=== PATIENT | male | born 1975 ===

== ENCOUNTER 2021-10-19 17:58 | Observation (INO) | payer OTHER ==
[2021-10-19] MEDS ORDERED: SODIUM CHLORIDE 0.9% 1,000 ML IV STA (18:23)
--- NOTE | 2021-10-19 18:27 | ED ---
General Adult HPI - General Chief complaint: Psychiatric Symptoms Stated complaint: Suicidal, overdose Time Seen by Provider: 10/19/21 18:18 Source: patient Mode of arrival: ambulatory - History of Present Illness Initial comments: Patient pesents to the ED for evaluation status post suicidal overdose attempt. Patient states that he took a full bottle of his Seroquel 400 mg, containing 14 pills, as well as a full bottle of his Wellbutrin XL 300 mg, containing 14 pills all at once about 3 hours ago in a suicidal attempt. Patient states that he was discharged from the psychiatric unit earlier today, and he states that he did not feel that he was ready to be discharged. Patient states that he currently has chest pain and feels "crappy". Patient also admits to feeling weak and dizzy, as well as feeling somewhat dyspneic. Patient denies any other suicidal attempt or any other medication abuse/overdose. Patient denies alcohol use or illicit drug use. Patient denies trauma or injury, fever or chills, headache, focal numbness/weakness/neuro deficit, dyspnea, cough or cold symptoms, palpitations, syncope, abdominal pain, nausea/vomiting/diarrhea, dysuria or urinary symptoms, leg or calf swelling or pain, hallucinations, homicidal ideations, or any other symptoms or complaints. - Related Data Home Medications Medication Instructions Recorded Confirmed Buprenorphine HCl/Naloxone HCl 1 film SL DAILY 10/09/21 10/19/21 [Suboxone 8 mg-2 mg Sl Film] rOPINIRole HCL [Requip] 2 mg PO HS 10/19/21 10/19/21 Previous Rx's Medication Instructions Recorded Hydrocortisone Cream 1 applic TOPICAL BID PRN each 10/19/21 [Hydrocortisone 1% Cream] Melatonin 3 mg PO HS 14 Days tab 10/19/21 Nicotine Gum (Polacrilex) 2 mg BUCCAL Q4HR PRN 28 Days 10/19/21 [Nicorette] pieceofgum QUEtiapine [SEROquel] 400 mg PO HS 14 Days tab 10/19/21 Sertraline [Zoloft] 150 mg PO HS 14 Days tab 10/19/21 buPROPion XL [Wellbutrin XL] 300 mg PO DAILY 14 Days tab 10/19/21 Allergies Allergy/AdvReac Type Severity Reaction Status Date / Time codeine Allergy Unknown Verified 10/19/21 18:10 haloperidol [From Haldol] Allergy Unknown Verified 10/19/21 18:10 Review of Systems ROS Statement: Those systems with pertinent positive or pertinent negative responses have been documented in the HPI. ROS Other: All systems not noted in ROS Statement are negative. Past Medical History Past Medical History: No Reported History Past Surgical History: No Surgical Hx Reported Past Psychological History: Anxiety, Bipolar, Depression Smoking Status: Current every day smoker - Past Family History Mother Family Medical History: Hypertension General Exam Limitations: no limitations General appearance: alert, in no apparent distress Head exam: Present: atraumatic, normocephalic Eye exam: Present: normal appearance, PERRL, EOMI ENT exam: Present: mucous membranes moist Neck exam: Present: other (Trachea is in midline) Respiratory exam: Present: normal lung sounds bilaterally. Absent: respiratory distress, wheezes, rales, rhonchi, stridor Cardiovascular Exam: Present: tachycardia, irregular rhythm, normal heart sounds, other (Normal radial pulses bilaterally) GI/Abdominal exam: Present: soft. Absent: distended, tenderness, guarding Extremities exam: Present: other (Negative Homans sign bilaterally). Absent: tenderness, pedal edema, calf tenderness Neurological exam: Present: alert, oriented X3, CN II-XII intact. Absent: motor sensory deficit Psychiatric exam: Present: flat affect Skin exam: Present: warm, dry, intact, normal color Course Vital Signs 10/19/21 10/19/21 18:04 19:27 Temperature 98.1 F Pulse Rate 180 H 125 H Respiratory 20 20 Rate Blood Pressure 58/40 153/100 O2 Sat by Pulse 96 95 Oximetry - Reevaluation(s) Reevaluation #1: 10/19/21 18:39 Case, H&P, EKG findings and pending ED workup were discussed with [place] [facility] control center nurse Aleksandra. She recommends treatment with IV fluids, benzos for agitation and seizure precautions given the patient's reported overdoses. She also recommends electrolyte corrections as needed. She recommends hospital admission for 24 hour observation. She has no further recommendations at this time. 10/19/21 19:39 Case, H&P, test results thus far, ED management thus far, and my discussion with [place] [facility] control [facility] as above were discussed with Dr. Mancera. She accepts hospital admission. She has no further recommendations at this time. 10/19/21 19:49 Patient remains in sinus tachycardia with occasional premature supraventricular complexes on the power system operator. Patient remains alert and breathing comfortable. Patient denies development of any new symptoms while in the ED. Patient is aware of his test results, and he agrees with hospital admission at this time. EKG Findings - EKG Comments: EKG Findings:: Sinus tachycardia with frequent premature supraventricular complexes, ventricular rate of 129 bpm, normal AL and QRS intervals, normal QT interval, normal axis, no ST or T-wave abnormality Medical Decision Making - Medical Decision Making Patient has been treated with IV fluids and IV Ativan in the ED. Patient has been alert and breathing comfortably while in the ED. [place] [facility] control center was consulted from the ED, and they recommend admission for 24-hour observation. Hospital admission was accepted by Dr. Ayala. - Lab Data Result diagrams: 10/19/21 18:29 10/19/21 18:29 Lab Results 10/19/21 10/19/21 10/19/21 Range/Units 18:29 18:29 18:29 WBC 6.0 (3.8-10.6) k/uL RBC 4.58 (4.30-5.90) m/uL Hgb 13.3 (13.0-17.5) gm/dL Hct 40.1 (39.0-53.0) % MCV 87.5 (80.0-100.0) fL MCH 29.0 (25.0-35.0) pg MCHC 33.2 (31.0-37.0) g/dL RDW 13.2 (11.5-15.5) % Plt Count 229 (150-450) k/uL MPV 7.3 Neutrophils % 85 % Lymphocytes % 9 % Monocytes % 4 % Eosinophils % 1 % Basophils % 0 % Neutrophils # 5.1 (1.3-7.7) k/uL Lymphocytes # 0.6 L (1.0-4.8) k/uL Monocytes # 0.2 (0-1.0) k/uL Eosinophils # 0.0 (0-0.7) k/uL Basophils # 0.0 (0-0.2) k/uL PT 10.5 (9.0-12.0) sec INR 1.0 (<1.2) APTT 23.7 (22.0-30.0) sec Sodium (137-145) mmol/L Potassium (3.5-5.1) mmol/L Chloride (98-107) mmol/L Carbon Dioxide (22-30) mmol/L Anion Gap mmol/L BUN (9-20) mg/dL Creatinine (0.66-1.25) mg/dL Est GFR (CKD-EPI)AfAm (>60 ml/min/1.73 sqM) Est GFR (CKD-EPI)NonAf (>60 ml/min/1.73 sqM) Glucose (74-99) mg/dL Plasma Lactic Acid Adis (0.7-2.0) mmol/L Calcium (8.4-10.2) mg/dL Magnesium (1.6-2.3) mg/dL Total Bilirubin (0.2-1.3) mg/dL AST (17-59) U/L ALT (4-49) U/L Alkaline Phosphatase (38-126) U/L Troponin I (0.000-0.034) ng/mL Total Protein (6.3-8.2) g/dL Albumin (3.5-5.0) g/dL Urine Color Urine Appearance (Clear) Urine pH (5.0-8.0) Ur Specific [place] (1.001-1.035) Urine Protein (Negative) Urine Glucose (UA) (Negative) Urine Ketones (Negative) Urine Blood (Negative) Urine Nitrite (Negative) Urine Bilirubin (Negative) Urine Urobilinogen (<2.0) mg/dL Ur Leukocyte Esterase (Negative) Salicylates mg/dL Urine Opiates Screen Not Detected (NotDetected) Ur Oxycodone Screen Not Detected (NotDetected) Urine Methadone Screen Not Detected (NotDetected) Ur Propoxyphene Screen Not Detected (NotDetected) Acetaminophen ug/mL Ur Barbiturates Screen Not Detected (NotDetected) U Tricyclic Antidepress Detected H (NotDetected) Ur Phencyclidine Scrn Not Detected (NotDetected) Ur Amphetamines Screen Not Detected (NotDetected) U Methamphetamines Scrn Not Detected (NotDetected) U Benzodiazepines Scrn Detected H (NotDetected) Urine Cocaine Screen Not Detected (NotDetected) U Marijuana (THC) Screen Not Detected (NotDetected) Serum Alcohol mg/dL 10/19/21 10/19/2122 Range/Units 18:29 18:29 18:29 WBC (3.8-10.6) k/uL RBC (4.30-5.90) m/uL Hgb (13.0-17.5) gm/dL Hct (39.0-53.0) % MCV (80.0-100.0) fL MCH (25.0-35.0) pg MCHC (31.0-37.0) g/dL RDW (11.5-15.5) % Plt Count (150-450) k/uL MPV Neutrophils % % Lymphocytes % % Monocytes % % Eosinophils % % Basophils % % Neutrophils # (1.3-7.7) k/uL Lymphocytes # (1.0-4.8) k/uL Monocytes # (0-1.0) k/uL Eosinophils # (0-0.7) k/uL Basophils # (0-0.2) k/uL PT (9.0-12.0) sec INR (<1.2) APTT (22.0-30.0) sec Sodium 139 (137-145) mmol/L Potassium 3.9 (3.5-5.1) mmol/L Chloride 100 (98-107) mmol/L Carbon Dioxide 20 L (22-30) mmol/L Anion Gap 19 mmol/L BUN 18 (9-20) mg/dL Creatinine 1.16 (0.66-1.25) mg/dL Est GFR (CKD-EPI)AfAm 88 (>60 ml/min/1.73 sqM) Est GFR (CKD-EPI)NonAf 76 (>60 ml/min/1.73 sqM) Glucose 121 H (74-99) mg/dL Plasma Lactic Acid Adis (0.7-2.0) mmol/L Calcium 9.5 (8.4-10.2) mg/dL Magnesium 1.7 (1.6-2.3) mg/dL Total Bilirubin 0.3 (0.2-1.3) mg/dL AST 21 (17-59) U/L ALT 13 (4-49) U/L Alkaline Phosphatase 86 (38-126) U/L Troponin I <0.012 (0.000-0.034) ng/mL Total Protein 7.7 (6.3-8.2) g/dL Albumin 4.6 (3.5-5.0) g/dL Urine Color Colorless Urine Appearance Clear (Clear) Urine pH 6.5 (5.0-8.0) Ur Specific [place] 1.003 (1.001-1.035) Urine Protein Negative (Negative) Urine Glucose (UA) Negative (Negative) Urine Ketones Negative (Negative) Urine Blood Negative (Negative) Urine Nitrite Negative (Negative) Urine Bilirubin Negative (Negative) Urine Urobilinogen <2.0 (<2.0) mg/dL Ur Leukocyte Esterase Negative (Negative) Salicylates <1.0 mg/dL Urine Opiates Screen (NotDetected) Ur Oxycodone Screen (NotDetected) Urine Methadone Screen (NotDetected) Ur Propoxyphene Screen (NotDetected) Acetaminophen <10.0 ug/mL Ur Barbiturates Screen (NotDetected) U Tricyclic Antidepress (NotDetected) Ur Phencyclidine Scrn (NotDetected) Ur Amphetamines Screen (NotDetected) U Methamphetamines Scrn (NotDetected) U Benzodiazepines Scrn (NotDetected) Urine Cocaine Screen (NotDetected) U Marijuana (THC) Screen (NotDetected) Serum Alcohol 13 mg/dL 10/19/21 Range/Units 18:29 WBC (3.8-10.6) k/uL RBC (4.30-5.90) m/uL Hgb (13.0-17.5) gm/dL Hct (39.0-53.0) % MCV (80.0-100.0) fL MCH (25.0-35.0) pg MCHC (31.0-37.0) g/dL RDW (11.5-15.5) % Plt Count (150-450) k/uL MPV Neutrophils % % Lymphocytes % % Monocytes % % Eosinophils % % Basophils % % Neutrophils # (1.3-7.7) k/uL Lymphocytes # (1.0-4.8) k/uL Monocytes # (0-1.0) k/uL Eosinophils # (0-0.7) k/uL Basophils # (0-0.2) k/uL PT (9.0-12.0) sec INR (<1.2) APTT (22.0-30.0) sec Sodium (137-145) mmol/L Potassium (3.5-5.1) mmol/L Chloride (98-107) mmol/L Carbon Dioxide (22-30) mmol/L Anion Gap mmol/L BUN (9-20) mg/dL Creatinine (0.66-1.25) mg/dL Est GFR (CKD-EPI)AfAm (>60 ml/min/1.73 sqM) Est GFR (CKD-EPI)NonAf (>60 ml/min/1.73 sqM) Glucose (74-99) mg/dL Plasma Lactic Acid Adis 4.8 H* (0.7-2.0) mmol/L Calcium (8.4-10.2) mg/dL Magnesium (1.6-2.3) mg/dL Total Bilirubin (0.2-1.3) mg/dL AST (17-59) U/L ALT (4-49) U/L Alkaline Phosphatase (38-126) U/L Troponin I (0.000-0.034) ng/mL Total Protein (6.3-8.2) g/dL Albumin (3.5-5.0) g/dL Urine Color Urine Appearance (Clear) Urine pH (5.0-8.0) Ur Specific [place] (1.001-1.035) Urine Protein (Negative) Urine Glucose (UA) (Negative) Urine Ketones (Negative) Urine Blood (Negative) Urine Nitrite (Negative) Urine Bilirubin (Negative) Urine Urobilinogen (<2.0) mg/dL Ur Leukocyte Esterase (Negative) Salicylates mg/dL Urine Opiates Screen (NotDetected) Ur Oxycodone Screen (NotDetected) Urine Methadone Screen (NotDetected) Ur Propoxyphene Screen (NotDetected) Acetaminophen ug/mL Ur Barbiturates Screen (NotDetected) U Tricyclic Antidepress (NotDetected) Ur Phencyclidine Scrn (NotDetected) Ur Amphetamines Screen (NotDetected) U Methamphetamines Scrn (NotDetected) U Benzodiazepines Scrn (NotDetected) Urine Cocaine Screen (NotDetected) U Marijuana (THC) Screen (NotDetected) Serum Alcohol mg/dL Critical Care Time Critical Care Time: Yes Total Critical Care Time: 45 Disposition Clinical Impression: Suicidal overdose, Tachycardia Disposition: ADMITTED IP TO THIS HOSP Condition: Stable Is patient prescribed a controlled substance at d/c from ED?: No Referrals: None,Stated [Primary Care Provider] - 1-2 days Time of Disposition: 19:41
[2021-10-19 18:35] LABS: Basophils % (A) 0 %; Eosinophils % (A) 1 %; HCT 40.1 % (39.0-53.0); HGB 13.3 gm/dL (13.0-17.5); Lymphocytes # (A) 0.6 k/uL (1.0-4.8); Lymphocytes % (A) 9 %; MCHC 33.2 g/dL (31.0-37.0); MCV 87.5 fL (80.0-100.0); Mean Platelet Volume 7.3; Monocytes # (A) 0.2 k/uL (0-1.0); Monocytes % (A) 4 %; Neutrophils # (A) 5.1 k/uL (1.3-7.7); Neutrophils % (A) 85 %; Platelet Count 229 k/uL (150-450); RBC 4.58 m/uL (4.30-5.90); RDW 13.2 % (11.5-15.5)
[2021-10-19] MEDS ORDERED: LORazepam 2 MG/ML INJ IV STA (18:41)
[2021-10-19 18:45] LABS: ALT 13 U/L (4-49); AST 21 U/L (17-59); Acetaminophen <10.0 ug/mL; African American GFR (CKD) 88 (>60 ml/min/1.73 sqM); Albumin 4.6 g/dL (3.5-5.0); Alcohol 13 mg/dL; Alkaline Phosphatase 86 U/L (38-126); Anion Gap 19 mmol/L; Blood Urea Nitrogen 18 mg/dL (9-20); Calcium 9.5 mg/dL (8.4-10.2); Carbon Dioxide 20 mmol/L (22-30); Chloride 100 mmol/L (98-107); Glucose 121 mg/dL (74-99); Magnesium 1.7 mg/dL (1.6-2.3); Non-African American GFR(CKD) 76 (>60 ml/min/1.73 sqM); Potassium 3.9 mmol/L (3.5-5.1); Salicylate <1.0 mg/dL; Sodium 139 mmol/L (137-145); Total Bilirubin 0.3 mg/dL (0.2-1.3); Total Protein 7.7 g/dL (6.3-8.2)
[2021-10-19] MEDS ORDERED: SODIUM CHLORIDE 0.9% 1,000 ML IV ONE (19:33)
[2021-10-19 19:38] LABS: Partial Thromboplastin Time 23.7 sec (22.0-30.0); Prothrombin Time 10.5 sec (9.0-12.0)
[2021-10-19 19:41] LABS: Appearance,Urine Clear (Clear); Bilirubin,Urine Negative (Negative); Blood,Urine Negative (Negative); Color,Urine Colorless; Glucose,Urine (UA) Negative (Negative); Ketones,Urine Negative (Negative); Leukocyte Esterase,Urine Negative (Negative); Nitrite,Urine Negative (Negative); PH, Urine 6.5 (5.0-8.0); Protein,Urine Negative (Negative); Specific Gravity,Urine 1.003 (1.001-1.035); Urobilinogen,Urine <2.0 mg/dL (<2.0)
[2021-10-19 20:06] LABS: Benzodiazepines Screen,Urine Detected (NotDetected); Tricyclic Antidepressant,Urine Detected (NotDetected)
[2021-10-19 20:07] LABS: Amphetamine Screen,Urine Not Detected (NotDetected); Barbiturate Screen,Urine Not Detected (NotDetected); Cocaine Screen,Urine Not Detected (NotDetected); Methadone Screen, Urine Not Detected (NotDetected); Opiate Screen,Urine Not Detected (NotDetected); Oxycodone Screen, Urine Not Detected (NotDetected); Phencyclidine Screen,Urine Not Detected (NotDetected); Urn Cannabinoid Scrn Not Detected (NotDetected)
--- NOTE | 2021-10-19 21:16 | P.HPIM ---
History of Present Illness H&P Date: 10/19/21 Chief Complaint: Drug overdose The patient is a 45-year-old male with history of chronic opioid abuse on Suboxone, depression is recently hospitalized in inpatient psych unit. The patient was discharged this morning and stated after his discharge he decided to go to the park and take his 14 Wellbutrin XL, 14 pills of Seroquel 300 mg. The patient presented to the emergency room approximately 3 hours after ingestion. He was alert and oriented but was complaining of not feeling well and having chest pain. The patient is alert and oriented of the time my evaluation. The patient is hospitalized for further workup and management. Review of Systems complete review of systems was done and negative other than as stated above Past Medical History Past Medical History: No Reported History Past Surgical History: No Surgical Hx Reported Past Psychological History: Anxiety, Bipolar, Depression Smoking Status: Current every day smoker - Past Family History Mother Family Medical History: Hypertension Medications and Allergies Home Medications Medication Instructions Recorded Confirmed Type Buprenorphine HCl/Naloxone HCl 1 film SL DAILY 10/09/21 10/19/21 History [Suboxone 8 mg-2 mg Sl Film] Hydrocortisone Cream 1 applic TOPICAL BID PRN each 10/19/21 10/19/21 Rx [Hydrocortisone 1% Cream] Melatonin 3 mg PO HS 14 Days tab 10/19/21 10/19/21 Rx Nicotine Gum (Polacrilex) 2 mg BUCCAL Q4HR PRN 28 Days 10/19/21 10/19/21 Rx [Nicorette] pieceofgum QUEtiapine [SEROquel] 400 mg PO HS 14 Days tab 10/19/21 10/19/21 Rx Sertraline [Zoloft] 150 mg PO HS 14 Days tab 10/19/21 10/19/21 Rx buPROPion XL [Wellbutrin XL] 300 mg PO DAILY 14 Days tab 10/19/21 10/19/21 Rx rOPINIRole HCL [Requip] 2 mg PO HS 10/19/21 10/19/21 History Allergies Allergy/AdvReac Type Severity Reaction Status Date / Time codeine Allergy Unknown Verified 10/19/21 18:10 haloperidol [From Haldol] Allergy Unknown Verified 10/19/21 18:10 Physical Exam Vitals: Vital Signs Temp Pulse Resp BP Pulse Ox 10/19/21 20:30 111 H 17 153/113 98 10/19/21 19:27 125 H 20 153/100 95 10/19/21 18:04 98.1 F 180 H 20 58/40 96 Intake and Output 10/19/21 10/19/21 10/19/21 06:59 14:59 22:59 Other: Weight 72.575 kg - Constitutional General appearance: no acute distress - EENT Eyes: PERRLA Ears: bilateral: normal - Respiratory Respiratory: bilateral: CTA - Cardiovascular Rhythm: regular - Gastrointestinal General gastrointestinal: normal bowel sounds - Integumentary Integumentary: normal - Neurologic Neurologic: CNII-XII intact - Musculoskeletal Musculoskeletal: strength equal bilaterally - Psychiatric flat affect,, poor insight Results CBC & Chem 7: 10/19/21 18:29 10/19/21 18:29 Labs: Abnormal Lab Results - Last 24 Hours (Table) 10/19/21 10/19/21 10/19/21 Range/Units 18:29 18:29 18:29 Lymphocytes # 0.6 L (1.0-4.8) k/uL Carbon Dioxide 20 L (22-30) mmol/L Glucose 121 H (74-99) mg/dL Plasma Lactic Acid Adis (0.7-2.0) mmol/L U Tricyclic Antidepress Detected H (NotDetected) U Benzodiazepines Scrn Detected H (NotDetected) 10/19/21 Range/Units 18:29 Lymphocytes # (1.0-4.8) k/uL Carbon Dioxide (22-30) mmol/L Glucose (74-99) mg/dL Plasma Lactic Acid Adis 4.8 H* (0.7-2.0) mmol/L U Tricyclic Antidepress (NotDetected) U Benzodiazepines Scrn (NotDetected) Thrombosis Risk Factor Assmnt - DVT/VTE Prophylaxis DVT/VTE Prophylaxis: Pharmacologic Prophylaxis ordered Assessment and Plan (1) Suicidal overdose Narrative/Plan: Patient recently discharged from inpatient psych, chronic suidical thought per notes, will monitor for seizures, use benzo prn for agitation, !:1 for suicide precaution, consult psychiatry, monitor on telemetry, observation. Hold his medications Current Visit: Yes Status: Acute Code(s): T50.902A - POISONING BY UNSP DRUG/MEDS/BIOL SUBST, SELF-HARM, INIT SNOMED Code(s): 26792806 (2) Opioid use disorder, severe, dependence Narrative/Plan: on Suboxone Current Visit: No Status: Acute Priority: Medium Code(s): F11.20 - OPIOID DEPENDENCE, UNCOMPLICATED SNOMED Code(s): 21530494 Plan: 1:1 for safety, telemetry, monitor his seizures medicines as needed for agitation psychiatry consult
[2021-10-19] MEDS: SODIUM CHLORIDE 0.9% 1,000 ML IV SCH (22:13)
[2021-10-19] MEDS ORDERED: Potassium Replacement Protocol 1 EACH MISC MISCELLANE PRN (22:29)
[2021-10-19] MEDS ORDERED: Magnesium Replacement Protocol 1 EACH MISC MISCELLANE PRN (22:29)
[2021-10-19] MEDS: MAGNESIUM SULFATE-D5W PMX 1 GM in DEXTROSE/WATER 1 100ML.BAG IVPB SCH ×2 (22:49→23:58)
[2021-10-19] MEDS ORDERED: POTASSIUM BICARBONATE/CIT AC 20 MEQ TABLET.EFF NG-TUBE SCH (23:00)
[2021-10-19] MEDS: HEPARIN SODIUM,PORCINE/PF 5,000 UNIT/0.5 ML SYRINGE SQ SCH (23:37)
[2021-10-20 09:10] LABS: Basophils % (A) 1 %; Eosinophils # (A) 0.2 k/uL (0-0.7); Eosinophils % (A) 6 %; HCT 36.9 % (39.0-53.0); HGB 12.3 gm/dL (13.0-17.5); Lymphocytes # (A) 1.1 k/uL (1.0-4.8); Lymphocytes % (A) 30 %; MCH 29.9 pg (25.0-35.0); MCHC 33.2 g/dL (31.0-37.0); Mean Platelet Volume 7.4; Monocytes # (A) 0.3 k/uL (0-1.0); Monocytes % (A) 7 %; Neutrophils % (A) 54 %; Platelet Count 218 k/uL (150-450); RDW 13.8 % (11.5-15.5); WBC 3.8 k/uL (3.8-10.6)
[2021-10-20 09:42] LABS: ALT 10 U/L (4-49); AST 19 U/L (17-59); African American GFR (CKD) >90 (>60 ml/min/1.73 sqM); Albumin 3.3 g/dL (3.5-5.0); Alkaline Phosphatase 89 U/L (38-126); Anion Gap 8 mmol/L; Blood Urea Nitrogen 23 mg/dL (9-20); Calcium 7.9 mg/dL (8.4-10.2); Carbon Dioxide 25 mmol/L (22-30); Chloride 107 mmol/L (98-107); Glucose 110 mg/dL (74-99); Magnesium 2.1 mg/dL (1.6-2.3); Non-African American GFR(CKD) >90 (>60 ml/min/1.73 sqM); Potassium 3.6 mmol/L (3.5-5.1); Sodium 140 mmol/L (137-145); Total Bilirubin 0.1 mg/dL (0.2-1.3); Total Protein 6.1 g/dL (6.3-8.2)
--- NOTE | 2021-10-20 10:52 | P.PN ---
Subjective Progress Note Date: 10/20/21 Patient seen and examined. No acute events overnight. Patient continues to report suicidal ideation. Sitter at bedside. Complains of anxiety. He has no other complaints. General: [non toxic], [no distress], [appears at stated age] Derm: [warm], [dry] Head: [atraumatic], [normocephalic], [symmetric] Eyes: [EOMI], [no lid lag], [anicteric sclera] Mouth: [no lip lesion], [mucus membranes moist] Cardiovascular: [S1S2 reg], [no murmur] Lungs: [CTA bilateral], [no rhonchi, no rales] , [no accessory muscle use] Abdominal: [soft], [ nontender to palpation], [no guarding], [no appreciable organomegaly] Ext: [no gross muscle atrophy], [no edema], [no contractures] Neuro: [no focal neuro deficits] Psych: [Alert], [oriented], [flat affect] #Overdose of Wellbutrin and Seroquel #Suicidal ideation #Normocytic anemia #Elevated BUN #Lactic acidosis Patient be continued on telemetry monitoring for 1 more day. One-to-one sitter ordered along with suicide precaution. Psychiatry consulted for further management of this patient. Anemia likely dilutional with no active signs of bleeding. Continue to monitor CBC. Lactic acidosis resolved with IV hydration. Anticipate transfer to inpatient psychiatry unit tomorrow. Objective - Vital Signs Vital signs: Vital Signs Temp 97.5 F L 10/20/21 08:00 Pulse 72 10/20/21 08:00 Resp 14 10/20/21 08:00 BP 99/67 10/20/21 08:00 Pulse Ox 95 10/20/21 08:00 FiO2 Intake & Output 10/19/21 10/20/21 10/20/21 18:59 06:59 18:59 Intake Total 720 Output Total 350 Balance -350 720 Weight 72.575 kg 71.5 kg Intake: Intake, IV Titration 720 Amount Sodium Chloride 0.9% 1, 720 000 ml @ 90 mls/hr IV . Q11H7M KELLY Rx#:[id number] Output: Urine 350 Other: Voiding Method Urinal Urinal - Labs CBC & Chem 7: 10/20/21 08:34 10/20/21 08:34 Labs: Abnormal Lab Results - Last 24 Hours (Table) 10/19/21 10/19/21 10/19/21 Range/Units 18:29 18:29 18:29 RBC (4.30-5.90) m/uL Hgb (13.0-17.5) gm/dL Hct (39.0-53.0) % Lymphocytes # 0.6 L (1.0-4.8) k/uL Carbon Dioxide 20 L (22-30) mmol/L BUN (9-20) mg/dL Glucose 121 H (74-99) mg/dL Plasma Lactic Acid Adis (0.7-2.0) mmol/L Calcium (8.4-10.2) mg/dL Total Bilirubin (0.2-1.3) mg/dL Total Protein (6.3-8.2) g/dL Albumin (3.5-5.0) g/dL U Tricyclic Antidepress Detected H (NotDetected) U Benzodiazepines Scrn Detected H (NotDetected) 10/19/21 10/20/21 10/20/21 Range/Units 18:29 08:34 08:34 RBC 4.10 L (4.30-5.90) m/uL Hgb 12.3 L (13.0-17.5) gm/dL Hct 36.9 L (39.0-53.0) % Lymphocytes # (1.0-4.8) k/uL Carbon Dioxide (22-30) mmol/L BUN 23 H (9-20) mg/dL Glucose 110 H (74-99) mg/dL Plasma Lactic Acid Adis 4.8 H* (0.7-2.0) mmol/L Calcium 7.9 L (8.4-10.2) mg/dL Total Bilirubin 0.1 L (0.2-1.3) mg/dL Total Protein 6.1 L (6.3-8.2) g/dL Albumin 3.3 L (3.5-5.0) g/dL U Tricyclic Antidepress (NotDetected) U Benzodiazepines Scrn (NotDetected)
[2021-10-20] MEDS: SODIUM CHLORIDE 0.9% 1,000 ML IV SCH ×2 (11:46→23:27)
[2021-10-20] MEDS: HEPARIN SODIUM,PORCINE/PF 5,000 UNIT/0.5 ML SYRINGE SQ SCH ×3 (11:47→23:28)
[2021-10-21] MEDS: HEPARIN SODIUM,PORCINE/PF 5,000 UNIT/0.5 ML SYRINGE SQ SCH ×3 (08:48→23:27)
--- NOTE | 2021-10-21 11:16 | P.CN ---
Psychiatric Consult - . Consult date: 10/21/21 Consult:: IDENTIFYING DATA AND REASON FOR CONSULT: He is 45-year-old single male admitted to medicine service for evaluation post suicidal overdose. He presented to ED with the complaint that he had taken 14 tablets of Seroquel 400 mg and 14 tablets of Wellbutrin XL 300 mg by mouth before presentation to the ED. PERTINENT PSYCHIATRIC HISTORY: I reviewed the medical record and interviewed the patient. He was minimally cooperative with the interview and provided minimal information. We discharged from the psychiatric unit on 10/19/2021 at 11:15. He presented to the ED 18:27 the same day. He complained that he was discharged from the psychiatric unit "too early." He complained that at discharge he feel depressed, hopeless, helpless and had suicidal ideation. After he left the psychiatric unit he obtained these medications and went to the park across from the hospital and took the medications. He insisted that he needs to state "longer" I psychiatric unit and then be placed in a care home; "I can't take care of myself out there." He talked about feeling overwhelmed by problems but was unwilling to talk about his concerns. He perseverated on the need for "long-term psychiatric hospitalization"and requested several times to be admitted to [facility] PAST PSYCHIATRIC AND/OR SUBSTANCE USE HISTORY: He would not talk about his past psychiatric history but alleged that he has had multiple past psychiatric hospitalizations at [facility]. According to the record he has a history of suicide attempts. He would not talk about his substance abuse history. According to record he has history of opiate use disorder and is prescribed Suboxone for the treatment of his opiate use disorder. SOCIAL HISTORY: He is a resident of [facility]. He is unemployed and receives Social Security income. He is currently not on probation, pro or has pending charges. He has had multiple past felony charges including multiple DUIs and breaking and entering, He [facility] a total of [facility] for these charges MENTAL STATUS EXAM: He presented as a casually groomed 45-year-old male who is resting comfortably in hospital bed. He requested that the lights be kept off because he is light sensitive. He had multiple tattoos on his arms. He had no prominent physical abnormalities. He is a sad facial expression. He was alert and oriented to person, place and time. He had psychomotor retardation but no abnormal involuntary movements. His speech was not spontaneous and had decreased rate, rhythm and volume. His affect was depressed and not reactive. He expressed suicidal ideation and wishes but denied current intent or plan. He denied homicidal ideation. He described feelings of hopelessness, helplessness and worthlessness. He ruminated over his perceived premature discharge from his recent hospitalization. He did not express ideas reference, paranoid ideation, magical ideation or delusions. His thinking was concrete but his associations were coherent, logical and goal directed. He denied hallucinations did not appear to be responding to internal stimuli. Global impression of intellect is average. IMPRESSIONS: He 45-year-old male who [facility] to [facility] following an overdose of prescription medications approximately 7 hours after discharge from the psychiatric unit. He has a history of multiple psychiatric hospitalizations, chronic depression, substance use disorders and legal problems. He expresses continued suicidal ideation and requested admission to a "longer term" psychiatric hospital such as [facility]. He obviously has signs and symptoms of a depressive disorder but his treatment is complicated by the substance abuse and personality issues. DIAGNOSIS: Suicidal ideation, suicide attempt by overdose of prescription medications, major depressive disorder, opiate use disorder on agonist therapy, probable antisocial personal disorder RECOMMENDATION: Hold psychiatric medications at this time, continue Suboxone 8-2 mg sublingual daily, suicide precautions with 1-1, high school social science teacher to assist with transfer to [facility], readmitted to [facility] the medical unit high school social science teacher is unable to arrange transfer to Hospital of the patient's request. Psychiatry will follow. 10/21/21 10:53
[2021-10-21] MEDS: BUPRENORPHINE-NALOX 8-2 MG TAB 1 EACH TAB.SUBL SL SCH (12:10)
--- NOTE | 2021-10-21 13:38 | P.PN ---
Subjective Progress Note Date: 10/21/21 Principal diagnosis: Suicide ideation Patient seen and examined today. He denies any complaints of chest pain or nausea vomiting fever or chills. He does complain of some sweating and feeling of opioid withdrawals. He takes Suboxone daily. Objective - Vital Signs Vital signs: Vital Signs Temp 98.1 F 10/21/21 12:00 Pulse 71 10/21/21 12:00 Resp 20 10/21/21 12:00 BP 158/82 10/21/21 08:00 Pulse Ox 97 10/21/21 12:00 FiO2 Intake & Output 10/20/21 10/21/21 10/21/21 18:59 06:59 18:59 Intake Total 536 073 0036 Output Total 315 734 5930 Balance 120 -60 80 Intake: Intake, IV Titration 720 450 900 Amount Sodium Chloride 0.9% 1, 720 450 900 000 ml @ 90 mls/hr IV . Q11H7M [facility] Rx#:[id number] Oral 240 180 Output: Urine 146 737 7203 Other: Voiding Method Urinal Urinal Urinal # Bowel Movements 1 - Exam General: [non toxic], [no distress], [appears at stated age] Derm: [warm], [dry] Head: [atraumatic], [normocephalic], [symmetric] Eyes: [EOMI], [no lid lag], [anicteric sclera] Mouth: [no lip lesion], [mucus membranes moist] Cardiovascular: [S1S2 reg], [no murmur] Lungs: [CTA bilateral], [no rhonchi, no rales] , [no accessory muscle use] Abdominal: [soft], [ nontender to palpation], [no guarding], [no appreciable organomegaly] Ext: [no gross muscle atrophy], [no edema], [no contractures] Neuro: [no focal neuro deficits] Psych: [Alert], [oriented], [flat affect] - Labs CBC & Chem 7: 10/20/21 08:34 10/20/21 08:34 Assessment and Plan (1) Suicidal overdose Current Visit: Yes Status: Acute Code(s): T50.902A - POISONING BY UNSP DRUG/MEDS/BIOL SUBST, SELF-HARM, INIT SNOMED Code(s): 87864538 Plan: #Overdose of Wellbutrin and Seroquel #Suicidal ideation #Normocytic anemia #Elevated BUN #Lactic acidosis No overnight issues on telemetry. Patient is alert and oriented. He is not having any further issues of nausea or vomiting. He is tolerating an oral diet without difficulties not having any chest pain or shortness of breath. Patient is medically stable for discharge. He is awaiting inpatient psych admission. Psychiatric team did evaluate patient and patient is requesting alternative facility to be admitted to inpatient psych. Case management to review Patient restarted on Suboxone due to his opioid dependence -Continue one-to-one sitter -We'll check a.m. labs
[2021-10-21] MEDS: SODIUM CHLORIDE 0.9% 1,000 ML IV SCH (16:00)
[2021-10-21] MEDS ORDERED: MORPHINE SULFATE 2 MG/ML SYRINGE IVP STA (18:43)
[2021-10-21] MEDS: LORazepam 2 MG/ML INJ IV PRN ×2 (19:30→23:54)
[2021-10-21] MEDS ORDERED: hydrALAZINE HCL 25 MG TAB PO STA (21:25)
[2021-10-22] MEDS ORDERED: ACETAMINOPHEN TAB 325 MG TAB PO PRN (03:15)
[2021-10-22] MEDS: LORazepam 2 MG/ML INJ IV PRN ×5 (03:26→22:19)
[2021-10-22] MEDS: HEPARIN SODIUM,PORCINE/PF 5,000 UNIT/0.5 ML SYRINGE SQ SCH ×3 (07:48→23:14)
[2021-10-22 08:00] LABS: Basophils % (A) 1 %; Eosinophils # (A) 0.3 k/uL (0-0.7); Eosinophils % (A) 5 %; HCT 47.1 % (39.0-53.0); HGB 15.2 gm/dL (13.0-17.5); Lymphocytes # (A) 1.4 k/uL (1.0-4.8); Lymphocytes % (A) 24 %; MCH 28.9 pg (25.0-35.0); MCHC 32.3 g/dL (31.0-37.0); MCV 89.5 fL (80.0-100.0); Mean Platelet Volume 7.2; Monocytes # (A) 0.4 k/uL (0-1.0); Monocytes % (A) 7 %; Neutrophils # (A) 3.6 k/uL (1.3-7.7); Neutrophils % (A) 61 %; Platelet Count 304 k/uL (150-450); RBC 5.27 m/uL (4.30-5.90); RDW 13.4 % (11.5-15.5); WBC 5.8 k/uL (3.8-10.6)
[2021-10-22 08:16] LABS: African American GFR (CKD) >90 (>60 ml/min/1.73 sqM); Anion Gap 10 mmol/L; Blood Urea Nitrogen 16 mg/dL (9-20); Calcium 9.3 mg/dL (8.4-10.2); Carbon Dioxide 27 mmol/L (22-30); Chloride 101 mmol/L (98-107); Glucose 99 mg/dL (74-99); Non-African American GFR(CKD) >90 (>60 ml/min/1.73 sqM); Potassium 4.1 mmol/L (3.5-5.1); Sodium 138 mmol/L (137-145)
[2021-10-22] MEDS: BUPRENORPHINE-NALOX 8-2 MG TAB 1 EACH TAB.SUBL SL SCH (11:18)
--- NOTE | 2021-10-22 12:25 | P.PN ---
Subjective Progress Note Date: 10/22/21 Principal diagnosis: Suicide ideation Patient seen and examined today. He denies any complaints of chest pain or nausea vomiting fever or chills. He does complain of some sweating and feeling of opioid withdrawals. He takes Suboxone daily. Objective - Vital Signs Vital signs: Vital Signs Temp 98.1 F 10/22/21 11:23 Pulse 75 10/22/21 12:15 Resp 18 10/22/21 11:23 BP 128/90 10/22/21 11:23 Pulse Ox 98 10/22/21 11:23 FiO2 Intake & Output 10/21/21 10/22/21 10/22/21 18:59 06:59 18:59 Intake Total 2290 240 0 Output Total 1900 Balance 390 240 0 Intake: Intake, IV Titration 1510 Amount Sodium Chloride 0.9% 1, 1510 000 ml @ 90 mls/hr IV . Q11H7[facility] Rx#:[id number] Oral 780 240 0 Output: Urine 1900 Other: Voiding Method Urinal Urinal # Voids 1 # Bowel Movements 1 - Exam General: [non toxic], [no distress], [appears at stated age] Derm: [warm], [dry] Head: [atraumatic], [normocephalic], [symmetric] Eyes: [EOMI], [no lid lag], [anicteric sclera] Mouth: [no lip lesion], [mucus membranes moist] Cardiovascular: [S1S2 reg], [no murmur] Lungs: [CTA bilateral], [no rhonchi, no rales] , [no accessory muscle use] Abdominal: [soft], [ nontender to palpation], [no guarding], [no appreciable organomegaly] Ext: [no gross muscle atrophy], [no edema], [no contractures] Neuro: [no focal neuro deficits] Psych: [Alert], [oriented], [flat affect] - Labs CBC & Chem 7: 10/22/21 07:19 10/22/21 07:19 Assessment and Plan (1) Suicidal overdose Current Visit: Yes Status: Acute Code(s): T50.902A - POISONING BY UNSP DRUG/MEDS/BIOL SUBST, SELF-HARM, INIT SNOMED Code(s): 72366963 Plan: #Overdose of Wellbutrin and Seroquel #Suicidal ideation #Normocytic anemia #Elevated BUN #Lactic acidosis Patient did have an episode of chest pain yesterday. EKG was reviewed and did not show any acute ischemia. Patient's blood pressure is currently stable today. No overnight issues on telemetry. Patient is alert and oriented. He is not having any further issues of nausea or vomiting. He is tolerating an oral diet without difficulties not having any chest pain or shortness of breath. Patient is medically stable for discharge. He is awaiting inpatient psych admission. Psychiatric team did evaluate patient and patient is requesting alternative facility to be admitted to inpatient psych. Case management to review Continue with Suboxone -Continue one-to-one sitter
[2021-10-22] MEDS: NICOTINE GUM (POLACRILEX) 2 MG GUM BUCCAL PRN (18:30)
[2021-10-23] MEDS: LORazepam 2 MG/ML INJ IV PRN ×3 (02:07→12:48)
[2021-10-23 08:40] VITALS: TEMP 98
[2021-10-23] MEDS: HEPARIN SODIUM,PORCINE/PF 5,000 UNIT/0.5 ML SYRINGE SQ SCH ×2 (08:44→15:46)
[2021-10-23] MEDS: BUPRENORPHINE-NALOX 8-2 MG TAB 1 EACH TAB.SUBL SL SCH (09:31)
--- NOTE | 2021-10-23 10:50 | P.PN ---
Subjective Progress Note Date: 10/23/21 Principal diagnosis: Suicide ideation Patient seen and examined today. He denies any complaints of chest pain or nausea vomiting fever or chills. He does complain of some sweating and feeling of opioid withdrawals. He takes Suboxone daily. Objective - Vital Signs Vital signs: Vital Signs Temp 98.0 F 10/23/21 08:39 Pulse 81 10/23/21 08:39 Resp 16 10/23/21 08:39 BP 131/91 10/23/21 08:39 Pulse Ox 96 10/23/21 08:39 FiO2 Intake & Output 10/22/21 10/23/21 10/23/21 18:59 06:59 18:59 Intake Total 476 240 Balance 476 240 Intake: Oral 476 240 Other: Voiding Method Toilet Urinal # Voids 1 1 - Exam General: [non toxic], [no distress], [appears at stated age] Derm: [warm], [dry] Head: [atraumatic], [normocephalic], [symmetric] Eyes: [EOMI], [no lid lag], [anicteric sclera] Mouth: [no lip lesion], [mucus membranes moist] Cardiovascular: [S1S2 reg], [no murmur] Lungs: [CTA bilateral], [no rhonchi, no rales] , [no accessory muscle use] Abdominal: [soft], [ nontender to palpation], [no guarding], [no appreciable organomegaly] Ext: [no gross muscle atrophy], [no edema], [no contractures] Neuro: [no focal neuro deficits] Psych: [Alert], [oriented], [flat affect] - Labs CBC & Chem 7: 10/22/21 07:19 10/22/21 07:19 Assessment and Plan (1) Suicidal overdose Current Visit: Yes Status: Acute Code(s): T50.902A - POISONING BY UNSP DRUG/MEDS/BIOL SUBST, SELF-HARM, INIT SNOMED Code(s): 81740506 Plan: #Overdose of Wellbutrin and Seroquel #Suicidal ideation #Normocytic anemia #Elevated BUN #Lactic acidosis Patient is resting comfortably without any new complaints of chest pain or pressure. No nausea or vomiting no fevers or chills. He is stable for discharge to inpatient psychiatric facility Continue with Suboxone -Continue one-to-one sitter
--- NOTE | 2021-10-23 14:10 | P.DS ---
Providers Date of admission: 10/19/21 19:41 Attending physician: Nivia Ayala MD Consults: 10/20/21 03:40 Consult Physician Urgent Consulting Provider: Bennie Mendez Consult Reason/Comments: Recent inpatient psych admit; suicidal ideation Do you want consulting provider notified?: Yes, Notify in am Primary care physician: Stated None - Discharge Diagnosis(es) (1) Suicidal overdose Current Visit: Yes Status: Acute Hospital Course: Patient is a 45-year-old male who presented to the hospital with an overdose of prescription medications. Patient took 14 pills of Wellbutrin and 14 pills of Seroquel. His minutes the hospital for suicide attempt. Patient was seen by psychiatric team and diagnosed with major depressive disorder. Patient is being admitted to inpatient psychiatric facility. Patient to resume his home Suboxone on discharge due to his opioid dependence history Discharge diagnosis #Overdose of Wellbutrin and Seroquel #Suicidal ideation #Normocytic anemia #Elevated BUN #Lactic acidosis Patient Condition at Discharge: Stable Plan - Discharge Summary Discharge Rx Participant: No New Discharge Prescriptions: Continue Buprenorphine HCl/Naloxone HCl [Suboxone 8 mg-2 mg Sl Film] 1 film SL DAILY Nicotine Gum (Polacrilex) [Nicorette] 2 mg BUCCAL Q4HR PRN 28 Days pieceofgum PRN Reason: Nicotine Cravings Discontinued rOPINIRole HCL [Requip] 2 mg PO HS Hydrocortisone Cream [Hydrocortisone 1% Cream] 1 applic TOPICAL BID PRN each PRN Reason: Skin Irritation Melatonin 3 mg PO HS 14 Days tab QUEtiapine [SEROquel] 400 mg PO HS 14 Days tab buPROPion XL [Wellbutrin XL] 300 mg PO DAILY 14 Days tab Sertraline [Zoloft] 150 mg PO HS 14 Days tab Discharge Medication List Buprenorphine HCl/Naloxone HCl [Suboxone 8 mg-2 mg Sl Film] 1 film SL DAILY 10/09/21 [History] Nicotine Gum (Polacrilex) [Nicorette] 2 mg BUCCAL Q4HR PRN 28 Days pieceofgum 10/19/21 [Rx] Follow up Appointment(s)/Referral(s): None,Stated [Primary Care Provider] - 1-2 days
[2021-10-23] MEDS: NICOTINE GUM (POLACRILEX) 2 MG GUM BUCCAL PRN (15:38)
[2021-10-23 15:39] VITALS: BP 143/80; PULSE 88; RESP 15
== END 2021-10-23 17:31 ==
LOC: EC 17:58 → 3SCARD 19:41
PROVIDERS: ADMIT Internal Medicine; ATTEND Internal Medicine
DX: T43.592A Poisoning by other antipsychotics and neuroleptics, intentional self-harm, initial encounter (principal); T43.292A Poisoning by other antidepressants, intentional self-harm, initial encounter; R07.9 Chest pain, unspecified; R45.851 Suicidal ideations; F41.9 Anxiety disorder, unspecified; F31.9 Bipolar disorder, unspecified; D64.9 Anemia, unspecified; R56.9 Unspecified convulsions; E87.2 Acidosis; F17.200 Nicotine dependence, unspecified, uncomplicated; Z82.49 Family history of ischemic heart disease and other diseases of the circulatory system; Z79.899 Other long term (current) drug therapy; Z79.891 Long term (current) use of opiate analgesic; Z88.5 Allergy status to narcotic agent; Z88.8 Allergy status to other drugs, medicaments and biological substances
CPT/HCPCS: 96376 ×4; 96361 ×2; 96365; 96366; 96372; 82075; 96375 ×2; 99285; 36415; 94760; 93005; 80053 ×2; 80048; 83605; 83735 ×2; 84484; 85025 ×3; 85610; 85730; 81003; 80306; 80143; 87635; 80179; G0378 ×5; G0480; J2060 ×4; J2270; J3475; J1644; 80320